=== PATIENT | male | born 1975 | race Two or more races ===

== ENCOUNTER 2023-01-07 00:46 | Emergency (ER) | payer MEDICAID, SELFPAY ==
[2023-01-07 00:51] VITALS: BP 166/95; PULSE 60; PULSE 62; RESP 16; RESP 20; TEMP 36.5; O2SAT 96; O2SAT 97; BMI 33.8
--- NOTE | 2023-01-07 00:59 | ED_ITS ---
HPI - Allergic Reaction General Chief complaint: Allergic Reaction Time Seen by Provider: 01/07/23 00:55 Source: patient and family Mode of arrival: walk-in History of Present Illness HPI narrative: patient presents to the ER complaining of an allergic reaction. Woke up with swelling of his neck. No cough or shortness of breath but feels like his throat is going to close off. MD complaint: Reports allergic reaction Related Data Allergies Allergy/AdvReac Type Severity Reaction Status Date / Time naproxen Allergy Mild Verified 01/07/23 00:54 Review of Systems ROS Status of ROS 10 or more systems reviewed and unremarkable except as noted in history and below Exam Constitutional Vital Signs - 24 hr 01/07/23 00:51 Temperature 97.7 F Pulse Rate [Monitor] 62 Respiratory Rate 16 Blood Pressure [Left Arm] 166/95 H Pulse Oximetry 97 Common normals: no apparent distress and oriented x3 HENMT Common normals: normocephalic and head/scalp atraumatic Eye Common normals: PERRL, EOMs intact bilaterally and conjunctivae normal Neck & C-Spine Other: swelling of his neck anteriorly and around to both sides bilat swelling of his uvula Respiratory Common normals: normal respiratory effort, no retractions, no use of accessory muscles and clear to auscultation bilaterally Cardio Common normals: no JVD, regular rate, regular rhythm, S1 normal heart sound and S2 normal heart sound GI Common normals: Normal to inspection, nondistended, normoactive bowel sounds present and soft to palpation Extremity Common normals: normal to inspection and full ROM Neuro Common normals: oriented x3, moves all extremities and no focal motor deficits Psych Appearance: grossly normal Course Vital Signs Vital signs: Vital Signs Temperature 97.7 F 01/07/23 00:51 Pulse Rate 62 01/07/23 00:51 Respiratory Rate 16 01/07/23 00:51 Blood Pressure 166/95 H 01/07/23 00:51 Pulse Oximetry 97 01/07/23 00:51 Temperature 97.7 F 01/07/23 00:51 Pulse Rate 62 01/07/23 00:51 Respiratory Rate 16 01/07/23 00:51 Blood Pressure 166/95 H 01/07/23 00:51 Pulse Oximetry 97 01/07/23 00:51 MDM - Allergic Reaction MDM Narrative Medical decision making narrative: patient presents with an allergic reaction manifested by swelling about his neck and in his throat. uvula edema. No stridor. No rash or joint swelling. CT demonstrated airway to be intact. patient treated in the department with IV hermes roids, pepcid and benadryl. observed in the department for several hours. At discharge his Uvula was no longer edematous and swelling about his neck had noticeably decreased. He is discharged home with prednisone and advised to follow up with the family doctor in the next couple of days Discharge Plan Discharge Chief Complaint: Allergic Reaction Clinical Impression: Allergic reaction Patient Disposition: Home, Self-Care Instructions: General Allergic Reaction (ED) Additional Instructions: follow up with your doctor in the next 2-3 days for recheck. Return if swelling worsens Stand Alone Forms: Portal Instructions Referrals: Pedro Rojo MD [Primary Care Provider] - 1 week
--- NOTE | 2023-01-07 01:05 | CT_ITS ---
[address] [address] Patient Name: VALERIE RUSSO MRN: [id number] date: 1975 Sex: M Assigned Patient Location: ER Current Patient Location: .[facility] Accession/Order Number: [id number] Exam Date: 01/07/2023 02:05 Report Date: 01/07/2023 02:50 At the request of: JENNIFER JARAMILLO Procedure: CT soft tissue neck w con INDICATION: 47 years old; Male. Symptom/Location/Duration: Sore throat. Difficulty swallowing. TECHNIQUE: CT examination of the neck. Axial, coronal and sagittal reformats were reviewed. 100 mL of Omnipaque 300 was injected intravenously without complication. Ionizing radiation dose reduced via iterative reconstruction/FBP blend and body size kV/mA adjustment. COMPARISON: None FINDINGS: AIRWAY: PARANASAL SINUSES AND MASTOID AIR CELLS: Visualized sinuses are clear. No fluid levels. Nasal septal deviation to the left with spur formation. Mastoids and middle ears are clear. NASOPHARYNX: Normal in appearance. OROPHARYNX: Normal in appearance. Incidental note is made of small calcifications in the tonsillar fossa consistent with old inflammatory changes. ORAL CAVITY: Normal in appearance. HYPOPHARYNX: Normal in appearance. LARYNX: Normal in appearance. TRACHEA: Patent. SOFT TISSUES: PARAPHARYNGEAL SPACE: Normal and symmetric. CAROTID SPACE: Normal in appearance. INSURANCE CLAIMS SPECIALIST SPACE: Normal in appearance. RETROPHARYNGEAL SPACE: Normal in appearance. LYMPH NODES: No pathologic adenopathy is appreciated. No matted or necrotic lymph nodes are seen. GLANDS: PAROTID: Normal in appearance. SUBMANDIBULAR: Normal in appearance. THYROID: No thyroid nodule or adenopathy. MISCELLANEOUS: LUNG APICES: Clear. BONY CERVICAL SPINE: Mild cervical spondylosis at C5-C6. Central protrusion type disc herniation at C4-C5. VISUALIZED BRAIN: A portion of the brain is included in this examination. No pathologic enhancement is seen. The study does not include the entire brain and cannot exclude all brain pathology. VISUALIZED GLOBES: No orbital masses are seen. DENTITION: Several missing teeth are noted. No periapical lucencies are seen. OTHER: None. IMPRESSION: 1. Airway is patent. No enhancing masses are seen. 2. No pathologic adenopathy. 3. Cervical spondylosis at C5-C6 with a central protrusion type disc herniation at C4-C5. Electronically authenticated by: JAGDEEP PETERSON Date: 01/07/2023 02:50
[2023-01-07] MEDS: DIPHENHYDRAMINE HCL 50 MG/ML (1ML) VIAL IV (01:08)
[2023-01-07] MEDS: FAMOTIDINE/PF 20 MG/2 ML VIAL IV (01:08)
[2023-01-07] MEDS: METHYLPREDNISOLONE SOD SUCC PF 125 MG/2 ML VIAL IVP (01:08)
[2023-01-07 01:16] LABS: Basophils Percent Auto 0.6 % (0.2-2.0); Eosinophils Absolute Auto 0.2 10^3/uL (0.0-0.7); Eosinophils Percent Auto 3.9 % (0.9-7.0); Hematocrit 42.6 % (42.0-54.0); Hemoglobin 14.7 g/dL (14.0-18.0); Immature Granulocytes Abs Auto 0.02 10^3/uL (0.00-0.03); Immature Granulocytes Pct Auto 0.4 % (0.0-0.5); Lymphocytes Absolute Auto 2.1 10^3/uL (1.2-3.8); Lymphocytes Percent Auto 41.3 % (20.5-60.0); Mean Corpuscular HGB Conc 34.5 g/dL (29.9-35.2); Mean Corpuscular Hemoglobin 30.9 pg (25.9-34.0); Mean Corpuscular Volume 89.7 fL (80.0-94.0); Mean Platelet Volume 9.8 fL (9.5-13.5); Monocytes Absolute Auto 0.5 10^3/uL (0.3-0.8); Monocytes Percent Auto 9.6 % (1.7-12.0); Neutrophils Absolute Auto 2.2 10^3/uL (1.4-6.5); Neutrophils Percent Auto 44.2 % (43.0-75.0); Platelet Count 253 10^3/uL (150-450); Red Blood Count 4.75 10^6/uL (4.70-6.10); Red Cell Distribution Width 14.2 % (11.0-15.0); White Blood Count 5.1 10^3/uL (4.0-11.0)
[2023-01-07 01:32] LABS: Alanine Aminotransferase 32 U/L (16-63); Albumin Level 3.4 g/dL (3.4-5.0); Alkaline Phosphatase 74 U/L (46-116); Anion Gap 11.6; Aspartate Amino Transferase 24 U/L (15-37); BUN Creatinine Ratio 11.3; Bilirubin Total 0.2 mg/dL (0.2-1.0); Calcium 8.3 mg/dL (8.5-10.1); Carbon Dioxide 25.7 mmol/L (21.0-32.0); Chloride 102 mmol/L (98-107); Estimated GFR (African America >60 (>=60); Estimated GFR (Non-African Ame >60 (>=60); Globulin 3.4 g/dL; Glucose 149 mg/dL (74-106); Potassium 3.3 mmol/L (3.5-5.1); Sodium 136 mmol/L (136-145); Total Protein 6.8 g/dL (6.4-8.2)
[2023-01-07 01:54] VITALS: PULSE 60; RESP 20; O2SAT 97
[2023-01-07 02:28] VITALS: PULSE 62; RESP 16; O2SAT 97
[2023-01-07 04:02] VITALS: PULSE 72; O2SAT 97
[2023-01-07 05:04] VITALS: PULSE 72; O2SAT 96
[2023-01-07 05:35] VITALS: PULSE 70; O2SAT 95
[2023-01-07] MEDS: PREDNISONE 20 MG TABLET 40 MG PO (05:55)
== END 2023-01-07 06:00 | disposition home or self-care (01) ==
PROVIDERS: Emergency Provider Internal Medicine; Family Provider Family Medicine; PCP Family Medicine
DX: T78.40XA Allergy, unspecified, initial encounter (principal)
CPT/HCPCS: 36415; 70491; 80053; 85025; 96374; 96375; 99284; J2930; Q9967